=== PATIENT | male | born 1965 | race Caucasian/White ===

== ENCOUNTER 2017-09-15 16:53 | Emergency (ER) | payer BC ==
[2017-09-15 17:04] VITALS: BP 125/96; PULSE 85; TEMP 98; BMI 33.9
--- NOTE | 2017-09-15 17:20 | PDOC ---
History of Present Illness - General Chief Complaint: Pain Stated Complaint: Testicular pain, swealling, back pain - History of Present Illness Initial Comments: 09/15/17 17:47 52 yo M with h/o herniated disc, HLD, who presents with R groin pain. Patient reports acute onset of R lateral flank/side pain that radiates to right sided groin. Pain described as intermittent, paroxysms of sharp shooting spasms down right side into groin and testicle. Reports swelling ( now resolved) and pain of right testicle 3 days [employer] (09/13/17). Presented to urgent care (09/13/17) with neg UA and antibiotic treatment, No imaging performed. Symtpoms not aggravted with valsalva, coughing, sneezing, laughing. Side/flank pain occasionally worsened with gradual lowering to sitting position. Denies N/V, fevers/chills, dysuria, flank pain, change in urination, hematuria, diarrhea, constipation, abdominal pain, urethral drainage/discharge, or lightheadedness. Sexually active with one sexual partner ( ) and denies h/o STI's, pyelo, or nephro. 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 Past History - Past Medical History Allergies/Adverse Reactions: Allergies Allergy/AdvReac Type Severity Reaction Status Date / Time No Known Allergies Allergy Verified 09/15/17 17:04 Home Medications: Ambulatory Orders Levofloxacin [Levaquin] 500 mg PO DAILY 09/15/17 COPD: No Hypercholesterolemia: Yes (?) Other medical history: denies - Immunization History Immunization Up to Date: No - Suicide/Smoking/Psychosocial Hx Smoking Status: No Smoking History: Never smoked Have you smoked in the past 12 months: No Number of Cigarettes Smoked Daily: 0 Information on smoking cessation initiated: No Hx Alcohol Use: No Drug/Substance Use Hx: No Substance Use Type: None Review of Systems - Review of Systems Comments:: 09/15/17 17:13 GENERAL/CONSTITUTIONAL: No fever or chills. No weakness. HEAD, EYES, EARS, NOSE AND THROAT: No change in vision. No ear pain or discharge. No sore throat.- CARDIOVASCULAR: No chest pain or shortness of breath RESPIRATORY: No cough, wheezing, or hemoptysis. GASTROINTESTINAL: No nausea, vomiting, diarrhea or constipation. GENITOURINARY: + R testicle pain. + R flank pain. No dysuria, frequency, or change in urination. MUSCULOSKELETAL:+ Mid thoracic back pain. No joint or muscle swelling or pain. No neck or back pain. SKIN: No rash NEUROLOGIC: No headache, vertigo, loss of consciousness, or change in strength/ sensation. ENDOCRINE: No increased thirst. No abnormal weight change HEMATOLOGIC/LYMPHATIC: No anemia, easy bleeding, or history of blood clots. ALLERGIC/IMMUNOLOGIC: No hives or skin allergy. *Physical Exam - Vital Signs Last Vital Signs Temp Pulse Resp BP Pulse Ox 98 F 85 18 125/96 100 09/15/17 17:01 09/15/17 17:01 09/15/17 17:01 09/15/17 17:01 09/15/17 17:01 - Physical Exam Comments: 09/15/17 17:13 GENERAL: Awake, alert, and fully oriented, in no acute distress HEAD: No signs of trauma, normocephalic, atraumatic EYES: PERRLA, EOMI, sclera anicteric, conjunctiva clear ENT:hearing grossly normal, nares patent, oropharynx clear without exudates. Moist mucosa NECK: Normal ROM, supple, no JVD, or masses LUNGS: No distress, speaks full sentences, clear to auscultation bilaterally HEART: Regular rate and rhythm, normal S1 and S2, no murmurs, rubs or gallops, peripheral pulses normal and equal bilaterally. ABDOMEN: Soft, nontender, normoactive bowel sounds. No guarding, no rebound, or rigidity. No masses. Absent CVA ttp. Absent suprapubic ttp. Neg campos sign or Mcburney point ttp. : Cremasteric reflex intact BL. Neg testicluar swelling or lesions. Neg penile discharge, lesions, or skin change. Neg testicular ttp. Neg epididymis ttp BL. Neg inguinal buldging on valsalva. No visible herniation. Absent fluid filled sacs or high riding testicle. EXTREMITIES : Normal inspection, Normal range of motion, no edema. No clubbing or cyanosis. SKIN: Warm, Dry, normal turgor, no rashes or lesions noted. Medical Decision Making - Medical Decision Making 09/15/17 18:15 52 yo M with h/o herniated disc, HLD, who presents with 4 days of acute onset, mildly improving R lateral flank/side pain that radiates to right sided groin. Pain described as intermittent, paroxysms of sharp shooting spasms down right side into groin and testicle. Pt. reports swelling of right testicle 3 days [employer] (09/13/17), now resolved. No identifiable alleviators, aggrevated with controlled lowering to seated position. No urinary or GI complaints. Physical exam benign with no evidence testicular swelling, penile lesions/discharge, or visible mass effect/budging. BL Cremasteric reflex intact. Neg CVA ttp. Hemodynamically intact. Recently presented to urgent care (09/13/17) with neg UA and antibiotic treatment, No imaging performed. Sexually active with one sexual partner () and denies h/o STI's, pyelo, or nephro. 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 Reasonable to consider testicular torsion with evidence of testicular pain and reported testicular swelling, despite neg findings on physical exam. Low suspicion of epidydimitis with neg sexual history or s/s. Consider nephrolithiasis, vs. abdominal/ visceral herniation. ED Course: Scrotum U/S UA 09/15/17 18:58 UA: Neg 09/15/17 19:[address] Grover
[2017-09-15 18:32] LABS: URINE APPEARANCE CLEAR; URINE BILIRUBIN NEGATIVE (NEGATIVE); URINE BLOOD NEGATIVE (NEGATIVE); URINE COLOR YELLOW; URINE GLUCOSE (UA) NEGATIVE (NEGATIVE); URINE KETONE NEGATIVE (NEGATIVE); URINE NITRITE NEGATIVE (NEGATIVE); URINE PROTEIN NEGATIVE (NEGATIVE); URINE UROBILINOGEN NEGATIVE mg/dL (0.2-1.0)
[2017-09-15] MEDS ORDERED: KETOROLAC TROMETHAMINE 60 MG/2 ML VIAL IM ONE (21:13)
[2017-09-15] MEDS ORDERED: KETOROLAC TROMETHAMINE 60 MG/2 ML VIAL ONE (21:50)
[2017-09-15 22:12] LABS: URINE LEUK ESTERASE Negative (NEGATIVE)
--- NOTE | 2017-09-15 22:58 | PDOC ---
*Physical Exam - Vital Signs Last Vital Signs Temp Pulse Resp BP Pulse Ox 98 F 85 18 125/96 100 09/15/17 17:01 09/15/17 17:01 09/15/17 17:01 09/15/17 17:01 09/15/17 17:01 ED Treatment Course - ADDITIONAL ORDERS Additional order review: Laboratory Results 09/15/17 18:20 Urine Color Yellow Urine Appearance Clear Urine pH 5.0 Ur Specific Hooper 1.027 Urine Protein Negative Urine Glucose (UA) Negative Urine Ketones Negative Urine Blood Negative Urine Nitrite Negative Urine Bilirubin Negative Urine Urobilinogen Negative Ur Leukocyte Esterase Negative - RADIOLOGY Radiology Studies Ordered: Category Date Time Status SPIRAL- RENAL-STONE CT [CT] Stat CT Scan 09/15/17 21:13 Taken - Medications Given in the ED: ED Medications Discontinued Medications Generic Name Dose Route Start Last Admin Trade Name Marlon PRN Reason Stop Dose Admin Ketorolac Tromethamine 60 mg 09/15/17 21:13 09/15/17 21:55 Toradol Injection - IM 09/15/17 21:14 60 mg ONCE ONE Administration Medical Decision Making - Medical Decision Making 09/15/17 22:59 52 with testicular pain. 4mm cyst *DC/Admit/Observation/Transfer Diagnosis at time of Disposition: Back pain, Hydrocele in adult - Discharge Dispostion Disposition: HOME Admit: No - Referrals Referrals: Jermaine Saleh MD [Staff Physician] - Neptali Posadas MD [Staff Physician] - - Patient Instructions Printed Discharge Instructions: DI for Hydrocele-Adult Additional Instructions: Follow up with Dr. Saleh for testicular cyst, hydrocele Follow your orthopedic doctor for your back Come back to emergency department for any new, worsening or concerning symptoms. - Post Discharge Activity Forms/Work/School Notes: Back to Work
== END 2017-09-15 23:07 | disposition home or self-care (01) ==
LOC: JER 16:53
PROC: 3E0233Z Introduction of Anti-inflammatory into Muscle, Percutaneous Approach (ICD-10-PCS; principal; 2017-09-15)
DX: N43.2 Other hydrocele (principal)
CPT/HCPCS: 74176; 76870-TC; 81003; 99282-25

== ENCOUNTER 2022-03-07 23:39 | Emergency (ER) | payer BC ==
[2022-03-07 23:46] VITALS: TEMP 98.2; BMI 35.9
[2022-03-08] MEDS ORDERED: METOCLOPRAMIDE HCL INJECTION 10 MG/2 ML VIAL IVPUSH ONE (00:04)
[2022-03-08] MEDS ORDERED: METOCLOPRAMIDE HCL INJECTION 10 MG/2 ML VIAL ONE (01:05)
[2022-03-08 01:21] LABS: BASO % 0.8 % (0-2.0); EOS % 3.5 % (0-4.5); HEMATOCRIT 39.2 % (35.4-49); HEMOGLOBIN 13.3 GM/dL (11.7-16.9); LYMPH % 29.5 % (8-40); MCH 27.5 pg (25.7-33.7); MEAN PLT VOLUME 10.1 fl (7.5-11.1); MONO % 12.1 % (3.8-10.2); NEUT % 54.1 % (42.8-82.8); PLATELET COUNT 135 10^3/uL (134-434); RBC 4.84 M/mm3 (4.00-5.60); RDW 13.8 % (11.9-15.9); WHITE BLOOD COUNT 5.5 K/mm3 (4.0-10.0)
[2022-03-08 01:49] LABS: ALBUMIN 3.9 g/dl (3.4-5.0); BLOOD UREA NITROGEN 17.8 mg/dL (7-18)
[2022-03-08 01:52] LABS: CREATININE 1.1 mg/dL (0.55-1.3)
[2022-03-08 01:54] LABS: BILIRUBIN,TOTAL 0.2 mg/dL (0.2-1); TOT PROT 7.1 g/dl (6.4-8.2)
[2022-03-08 05:02] VITALS: BP 138/80; PULSE 71
== END 2022-03-08 05:03 | disposition home or self-care (01) ==
LOC: JER 23:39
PROC: 3E033GC Introduction of Other Therapeutic Substance into Peripheral Vein, Percutaneous Approach (ICD-10-PCS; principal; 2022-03-07)
DX: R51.9 Headache, unspecified (principal)
CPT/HCPCS: 36415; 70450-TC; 70496-TC; 80053; 84484; 85025; 93005; 93010; 99285-25